=== PATIENT | female | born 1995 | race Caucasian/White ===

== ENCOUNTER → 2024-03-01 13:20 | Outpatient (CLI) | payer OTHER, SELFPAY ==
[2024-03-01 13:44] LABS: Add Manual Diff / Slide Review NO; Basophils Absolute Auto 0 /uL (0-100); Basophils Percent Auto 0.9 % (0-2); Eosinophils Absolute Auto 100 /uL (0-450); Eosinophils Percent Auto 1.9 % (2-4); Hematocrit 36.7 % (36-46); Hemoglobin 12.5 g/dL (12.0-16.0); Lymphocytes Absolute Auto 2000 /uL (1100-4500); Lymphocytes Percent Auto 36.9 % (25-40); Mean Corpuscular Volume 88.1 fL (80-100); Monocytes Absolute Auto 500 /uL (0-900); Monocytes Percent Auto 8.5 % (3-14); Neutrophils Absolute Auto 2800 /uL (1500-7000); Neutrophils Percent Auto 51.8 % (50-75); Platelet Count 277 X10^3/uL (150-400); Red Blood Cell Count 4.17 X10^6/uL (4.0-5.2); Red Cell Distribution Width 12.9 % (11.6-14.8); White Blood Cell Count 5.3 X10^3/uL (4.5-11.0)
[2024-03-01 14:19] LABS: Alanine Aminotransferase 16 IU/L (<35); Albumin 4.5 g/dL (3.5-5.0); Albumin Globulin Ratio 1.6 (1.0-2.8); Alkaline Phosphatase 56 U/L (38-126); Aspartate Aminotransferase 20 IU/L (14-36); BUN Creatinine Ratio 20.8 (6-22); Bilirubin Total 0.6 mg/dL (0.2-1.3); Blood Urea Nitrogen 11 mg/dL (7-17); C-Reactive Protein Quant < 0.5 mg/dL (<1.0); Calcium 9.3 mg/dL (8.4-10.2); Carbon Dioxide 24 mmol/L (22-32); Chloride 109 mmol/L (98-107); Estimated Glomerular Filt Rate > 60 mL/min (>60); Globulin 2.8 g/dL (1.7-4.1); Glucose 91 mg/dL (70-100); HEMOLYSIS < 15 (0-50); Potassium 3.9 mmol/L (3.4-5.1); Sodium 139 mmol/L (137-145); Total Protein 7.3 g/dL (6.3-8.2)
[2024-03-01 14:21] LABS: Rheumatoid Factor < 8.6 IU/mL (<12.0)
[2024-03-01 14:59] LABS: Erythrocyte Sedimentation Rate 8 MM/HR (0-20)
[2024-03-03 09:45] LABS: Deamidated Gliadin Ab IgA 4 units (0-19); Deamidated Gliadin Ab IgG 2 units (0-19); Immunoglobulin A,Qn 267 mg/dL (87-352); t-Transglutaminase IgA <2 U/mL (0-3)
[2024-03-05 16:07] LABS: ANA Screen, IFA Negative (.)
== END ==
LOC: LAB 13:22
PROVIDERS: PCP Family Medicine; Referring Provider Family Medicine; Visit Provider Family Medicine
DX: Z00.00 Encounter for general adult medical examination without abnormal findings (principal); R21 Rash and other nonspecific skin eruption; M25.50 Pain in unspecified joint; R53.83 Other fatigue; L98.9 Disorder of the skin and subcutaneous tissue, unspecified; K12.1 Other forms of stomatitis; Z92.89 Personal history of other medical treatment
CPT/HCPCS: 36415; 80053; 82784; 83516; 84443; 85025; 85651; 86038; 86140; 86430

== ENCOUNTER 2024-05-12 16:44 | Emergency (ER) | payer BC, SELFPAY ==
[2024-05-12 16:52] VITALS: BP 136/90; PULSE 78; RESP 16; TEMP 37.3; O2SAT 99; BMI 22.6
--- NOTE | 2024-05-12 18:35 | ED_ITS ---
HPI - Allergic Reaction <Jj Goldsmith PA-C - Last Filed: 05/12/24 18:51> General Chief complaint: Allergic Reaction Stated complaint: blurry vision, LOC, light sensitivity Time Seen by Provider: 05/12/24 17:53 Source: patient Mode of arrival: Ambulatory History of Present Illness HPI narrative: This is a 28-year-old female presents emergency department due to an episode reportedly going sun when her eyes began to swell up with some tearing as well as an episode of nausea and vomiting. She denies any chest pain, shortness of breath, itchiness, abdominal pain fevers, or concerning signs or symptoms. States this has happened frequently for her over the last 6 months or so. 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 Related Data Home Medications Medication Instructions Recorded Confirmed dupilumab 300 mg/2 mL subcutaneous 300 mg SUBCUT QWEEK 02/08/24 03/17/24 pen injector (Dupixent) Previous Rx's Medication Instructions Recorded hydroxyzine HCl 25 mg tablet 25 - 50 mg (1 - 2 x 25 mg) PO 03/17/24 BEDTIME #30 tabs Allergies Allergy/AdvReac Type Severity Reaction Status Date / Time No Known Drug Allergies Allergy Unverified 03/17/24 08:56 Review of Systems <Jj Goldsmith PA-C - Last Filed: 05/12/24 18:51> Review of Systems Narrative: GENERAL: Denies chills, fatigue, malaise, fever, sweats. HEENT: Denies sinus pain, ear pain, sore throat, difficulty swallowing, dizziness. RESPIRATORY: Denies dyspnea, cough, wheezing, hemoptysis, sputum. CARDIOVASCULAR: Denies chest pain, palpitations, orthopnea, edema, GASTROINTESTINAL: Denies nausea, vomiting, abdominal pain, diarrhea, constipation, melena. : Denies dysuria, frequency, incontinence, hematuria, urinary retention. MUSCULOSKELETAL: denies weakness, joint pain, or bony pain SKIN: Denies rash, skin lesions, or other NEUROLOGIC: Denies weakness, headache, numbness, change in speech, confusion, seizures, incoordination. PSYCHIATRIC: No concerning psychosocial issues. 12 point review of systems is negative except for those stated above Patient History <Jj Goldsmith PA-C - Last Filed: 05/12/24 18:51> Social History Smoking Status: Never smoker Smoking Status: Never smoker Substance Use Type: does not use Exam <XAVI Connors Last Filed: 05/12/24 18:51> Narrative Exam Narrative: GENERAL: Well-developed patient, in mild distress. HEAD: Atraumatic. Normocephalic. EYES: Pupils equal round and reactive. Extraocular motions intact. No scleral icterus. No injection or drainage. ENT: Nose without bleeding, purulent drainage. Throat without erythema, tonsillar hypertrophy or exudate. Airway patent. NECK: Trachea midline. Non tender EXTREMITIES: No edema or joint tenderness. NEURO: AOx3. SKIN: No rash or erythema of visible areas Initial Vital Signs Initial Vital Signs: Vital Signs Temperature 99.1 F 05/12/24 16:52 Pulse Rate 78 05/12/24 16:52 Respiratory Rate 16 05/12/24 16:52 Blood Pressure 136/90 05/12/24 16:52 Pulse Oximetry 99 05/12/24 16:52 Oxygen Delivery Method Room Air 05/12/24 16:52 <DO Ian Hughes Last Filed: 05/13/24 18:49> Initial Vital Signs Initial Vital Signs: Vital Signs Temperature 99.1 F 05/12/24 16:52 Pulse Rate 78 05/12/24 16:52 Respiratory Rate 16 05/12/24 16:52 Blood Pressure 136/90 05/12/24 16:52 Pulse Oximetry 99 05/12/24 16:52 Oxygen Delivery Method Room Air 05/12/24 16:52 Course <XAVI Connors Last Filed: 05/12/24 18:51> Vital Signs Vital signs: Vital Signs - 8 hr 05/12/24 16:52 Temperature 99.1 F Pulse Rate 78 Respiratory Rate 16 Blood Pressure 136/90 Pulse Oximetry 99 Oxygen Delivery Method Room Air <DO Ian Hughes Last Filed: 05/13/24 18:49> Vital Signs Vital signs: Vital Signs - 8 hr 05/12/24 16:52 Temperature 99.1 F Pulse Rate 78 Respiratory Rate 16 Blood Pressure 136/90 Pulse Oximetry 99 Oxygen Delivery Method Room Air MDM - Allergic Reaction <XAVI Connors Last Filed: 05/12/24 18:51> MDM Narrative Medical decision making narrative: ED course: This is a 28-year-old female who vague complaints of an episode of nausea and vomiting as well as erythema around her eyes. On exam there was no erythema noted and no longer having any episodes of vomiting. Discussed with the patient she follow up with the primary care provider for further outpatient testing and no need for emergent testing today. No difficulty breathing or concerns for any kind of anaphylactic reaction. CC: Nausea vomiting Complicating co-morbidities: None Data collected from: Previous notes Medical records reviewed: Patient has not been to to this emergency department the past Differential considered, but not limited to: Autoimmune process Exam documented above, pertinent findings include: No abnormal findings Lab Test results independently reviewed as above. Pertinent findings: None obtained Imaging studies independently reviewed: None obtained Scores Used: None MIPS Elements: None Consultations: None Treatments: None Re-evaluations: None Discussion: Discussed plan with the patient was comfortable with the plan Diagnosis: Nausea and vomiting Disposition: see below, along with detailed discharge instructions that have been reviewed with patient as well as indications for ED re-evaluation and additional outpatient follow up Discharge Plan Departure Patient Disposition: Home Clinical Impression: Vomiting Activity Restrictions/Additional Instructions: Thank you for coming to the [facility] Emergency Department today. As we discussed I recommend he follow up with the primary care provider for further workup of what is causing your symptoms. I do not believe you ever have any life-threatening symptoms currently. Please return to the emergency department if you develop any significant difficulty breathing or any other concerning signs or symptoms. I hope you feel better soon. Please follow up with your primary care provider within a week if your symptoms continue. If you do not have a primary care provider please contact the [facility] Resource line at [phone]. They will ask some questions about your medical history and help you get set up with a provider in the community. Prescriptions: No Action Dupixent Pen 300 mg/2 mL pen injector 300 mg SUBCUT QWEEK hydroxyzine HCl 25 mg tablet 25 - 50 mg PO BEDTIME Qty: 30 0RF Referrals: Penny Barbosa DO [Primary Care Provider] - Stand Alone Forms: Patient Portal/API ED Sign-out <Madonna Morse DO - Last Filed: 05/13/24 18:49> Cosign ED Attending Ovidio Attestation: I was immediately available in the department for consultation.
[2024-05-12 18:56] VITALS: BP 132/68; PULSE 75; RESP 16; TEMP 36.7; O2SAT 99
== END 2024-05-12 18:57 | disposition home or self-care (01) ==
PROVIDERS: Emergency Provider Physician Assistant Medical; PCP Family Medicine
DX: R11.2 Nausea with vomiting, unspecified (principal)
CPT/HCPCS: 99281; 99282

== ENCOUNTER 2024-08-12 09:38 | Emergency (ER) | payer BC, SELFPAY ==
[2024-08-12] VITALS (8 sets, daily range): BP systolic 113–152; BP diastolic 71–89; PULSE 79–90; RESP 13–30; TEMP 36.7; O2SAT 97–99; BMI 22.3
[2024-08-12 10:15] LABS: Add Manual Diff / Slide Review NO; Basophils Absolute Auto 0 /uL (0-100); Eosinophils Absolute Auto 100 /uL (0-450); Eosinophils Percent Auto 1.5 % (2-4); Hematocrit 39.5 % (36-46); Hemoglobin 13.4 g/dL (12.0-16.0); Lymphocytes Absolute Auto 1700 /uL (1100-4500); Lymphocytes Percent Auto 34.5 % (25-40); Mean Corpuscular HGB Conc 33.9 % (30-36); Mean Corpuscular Hemoglobin 29.3 PG (26-34); Mean Corpuscular Volume 86.3 fL (80-100); Monocytes Absolute Auto 600 /uL (0-900); Monocytes Percent Auto 11.4 % (3-14); Neutrophils Absolute Auto 2600 /uL (1500-7000); Neutrophils Percent Auto 51.6 % (50-75); Platelet Count 312 X10^3/uL (150-400); Red Blood Cell Count 4.57 X10^6/uL (4.0-5.2); Red Cell Distribution Width 13.5 % (11.6-14.8)
[2024-08-12 10:26] LABS: Alanine Aminotransferase 24 IU/L (<35); Albumin 4.9 g/dL (3.5-5.0); Albumin Globulin Ratio 1.5 (1.0-2.8); Alkaline Phosphatase 46 U/L (38-126); Aspartate Aminotransferase 28 IU/L (14-36); Bilirubin Total 0.9 mg/dL (0.2-1.3); Blood Urea Nitrogen 10 mg/dL (7-17); Calcium 9.4 mg/dL (8.4-10.2); Carbon Dioxide 19 mmol/L (22-32); Chloride 109 mmol/L (98-107); Estimated Glomerular Filt Rate > 60 mL/min (>60); Globulin 3.3 g/dL (1.7-4.1); Glucose 85 mg/dL (70-100); Lipase 57 U/L (23-300); Potassium 4.7 mmol/L (3.4-5.1); Sodium 137 mmol/L (137-145); Total Protein 8.2 g/dL (6.3-8.2)
[2024-08-12 10:27] LABS: HEMOLYSIS 88 (0-50)
--- NOTE | 2024-08-12 11:52 | ED_ITS ---
HPI - Abdominal Pain General Chief Complaint: Abdominal Pain Stated Complaint: Pain in right lower side Time Seen by Provider: 08/12/24 11:52 Source: patient and family Mode of arrival: Ambulatory History of Present Illness HPI narrative: Patient is a 28-year-old healthy female presenting today with sudden onset of right buttock pain radiating to her rectal area. She also has some mild right lower quadrant pain. She reports that she had a normal day yesterday she went to the restroom this morning and then suddenly had excruciating pain in her right lower lumbar area with sharp shooting pain to her rectal area. She has no loss of bowel or urine. No numbness or tingling in her leg. It does seem to be positional but she also says it is wrapping around into her abdomen as well. She denies any sort of injury or lifting. She reports that she and her are trying to conceive however test is negative. No nausea or vomiting. Related Data Home Medications Medication Instructions Recorded Confirmed dupilumab 300 mg/2 mL subcutaneous 300 mg SUBCUT QWEEK 02/08/24 07/18/24 pen injector (Dupixent) Previous Rx's Medication Instructions Recorded hydroxyzine HCl 25 mg tablet 25 - 50 mg (1 - 2 x 25 mg) PO 03/17/24 BEDTIME #30 tabs gabapentin 300 mg capsule 300 mg PO BEDTIME #30 caps 08/12/24 lidocaine 5 % topical patch 1 patch topical DAILY PRN pain, 08/12/24 moderate #30 ea Allergies Allergy/AdvReac Type Severity Reaction Status Date / Time No Known Drug Allergies Allergy Verified 08/12/24 09:53 Patient History Medical History (Updated 08/12/24 @ 12:14 by Raegan De Oliveira DO) History of hypothyroidism Social History Smoking Status: Never smoker Smoking Status: Never smoker Substance Use Type: does not use Exam Initial Vital Signs Initial Vital Signs: Vital Signs Temperature 98.1 F 08/12/24 09:50 Pulse Rate 90 08/12/24 09:50 Respiratory Rate 30 H 08/12/24 09:50 Blood Pressure 128/89 08/12/24 09:50 Pulse Oximetry 98 08/12/24 09:50 Oxygen Delivery Method Room Air 08/12/24 09:50 GENERAL: Well-appearing 28-year-old female appears in pain HEENT: Head atraumatic,EOMI, pupils reactive, face symmetric, [moist] mucous membranes CARDIOVASCULAR: Regular rate and rhythm without murmurs, rubs or gallops. RESPIRATORY: Breath sounds equal bilaterally, no wheezes rales or rhonchi. ABDOMEN: Soft, mild right lower quadrant pain BACK: Right lower lumbar pain definitely reproducible with palpation and light touch. Pain in buttock region as well : No CVA tenderness EXTREMITIES: Normal range of motion, no clubbing or edema. Neurovascularly intact NEUROLOGICAL: Alert and oriented x4.Normal gait and speech. Cranial nerves II through XII grossly intact. SKIN: Warm, dry, no laceration, no petechiae, no rashes or lesions. Course Orders Ordered: ED Orders 08/12/24 10:10 Complete Blood Count AUTO DIFF Stat Comprehensive Metabolic Panel Stat Lipase Stat Discontinued Medications Ketorolac Tromethamine (Ketorolac 30 Mg/Ml Vial) 15 mg IV NOW ONE Stop: 08/12/24 12:01 Last Admin: 08/12/24 12:12 Dose: Not Given Documented By: ELYSIA Lidocaine (Lidocaine 5% Patch) 1 each TOP NOW ONE Stop: 08/12/24 12:01 Last Admin: 08/12/24 12:12 Dose: 1 each Documented By: ELYSIA Ondansetron HCl (Ondansetron 4 Mg/2 Ml Inj) 4 mg IV NOW PRN PRN Reason: Nausea And Vomiting Ondansetron HCl (Ondansetron 4 Mg Odt) 4 mg PO NOW PRN PRN Reason: Nausea And Vomiting Vital Signs Vital signs: Vital Signs - 8 hr 08/12/24 11:00 08/12/24 11:00 08/12/24 11:21 Pulse Rate 86 Respiratory Rate 23 Blood Pressure 113/71 152/85 H Pulse Oximetry 98 08/12/24 11:21 08/12/24 11:30 08/12/24 11:30 Pulse Rate 80 79 Respiratory Rate 22 22 Blood Pressure 123/82 Pulse Oximetry 99 98 08/12/24 12:00 08/12/24 12:00 Pulse Rate 83 Respiratory Rate Blood Pressure 130/87 Pulse Oximetry 98 MDM - Abdominal Pain Lab Data 08/12/24 10:10 08/12/24 10:10 Labs: Lab Results 08/12/24 Range/Units 10:10 WBC 5.0 (4.5-11.0) X10^3/uL RBC 4.57 (4.0-5.2) X10^6/uL Hgb 13.4 (12.0-16.0) g/dL Hct 39.5 (36-46) % MCV 86.3 (80-100) fL MCH 29.3 (26-34) PG MCHC 33.9 (30-36) % RDW 13.5 (11.6-14.8) % Plt Count 312 (150-400) X10^3/uL Neut % (Auto) 51.6 (50-75) % Lymph % (Auto) 34.5 (25-40) % [place]es % (Auto) 11.4 (3-14) % Eos % (Auto) 1.5 L (2-4) % Baso % (Auto) 1.0 (0-2) % Neut # (Auto) 2600 (6843-6748) /uL Lymph # (Auto) 1700 (2920-4271) /uL Coles # (Auto) 600 (0-900) /uL Eos # (Auto) 100 (0-450) /uL Baso # (Auto) 0 (0-100) /uL Sodium 137 (137-145) mmol/L Potassium 4.7 (3.4-5.1) mmol/L Chloride 109 H (98-107) mmol/L Carbon Dioxide 19 L (22-32) mmol/L BUN 10 (7-17) mg/dL Creatinine 0.50 L (0.52-1.04) mg/dL Estimated GFR > 60 (>60) mL/min BUN/Creatinine Ratio 20.0 (6-22) Glucose 85 (70-100) mg/dL Calcium 9.4 (8.4-10.2) mg/dL Total Bilirubin 0.9 (0.2-1.3) mg/dL AST 28 (14-36) IU/L ALT 24 (<35) IU/L Alkaline Phosphatase 46 (38-126) U/L Total Protein 8.2 (6.3-8.2) g/dL Albumin 4.9 (3.5-5.0) g/dL Globulin 3.3 (1.7-4.1) g/dL Albumin/Globulin Ratio 1.5 (1.0-2.8) Lipase 57 (23-300) U/L Point of care testing: Point of Care Testing Test Results Negative Urine Dip Bedside Urine Glucose Negative Bedside Urine Bilirubin - Negative Bedside Urine Ketone - Negative Urine Specific [place] 1.010 Bedside Urine Occult Blood - Negative Bedside Urine pH 7.5 Bedside Urine Protein - Negative Bedside Urine Urobilinogen - Negative Bedside Urine Nitrite - Negative Bedside Urine Leukocytes - Negative Esterase MDM Narrative Medical decision making narrative: QUIN CC: Right buttock pain Complicating co-morbidities: Healthy female Medical records reviewed: Prior [employer] visit Differential considered: Sciatica retrocecal appendicitis ovarian cyst Exam documented above, pertinent findings include: Pain is reproducible in right lumbar area very sensitive to touch in the skin. It is lumbar buttock region. She says some minor tenderness right lower quadrant but overall abdomen is soft Lab Test results independently reviewed as above. Pertinent findings: CBC shows no leukocytosis WBC is 5.0 hemoglobin 13.4 hematocrit 39.5 CMP normal electrolytes bicarb is 19 creatinine 0.5, bilirubin liver enzymes Consultations: None Treatments: Lidocaine patch, Toradol was ordered IV however patient lost her IV she did not want Toradol IM Re-evaluations: Patient ambulated in ED without difficulty Discussion: Patient 28-year-old female presenting today with severe right-sided lumbar buttock pain was sharp shooting pain to the rectal region. She has no loss of stool or urine. It is definitely positional. She does some minimal right lower quadrant pain but definitely more tender in the back. More concerning for musculoskeletal is she will rather than abdominal issue. I did discuss with patient and mother possible need for CT unable to truly diagnose appendicitis retrocecal appendicitis is still possible although she is definitely able to find position of comfort. At this time she has no leukocytosis minimal abdominal pain. She would like to try lidocaine patch conservative measures and avoid a CT at this time. This seems reasonable. Discussion with her that if pain worsens then she must return to ED which she understands. She does not want any strong pain medication offered Toradol as an IM shot as opposed to IV however she would just like to take Motrin p.o. at home, does not like shots Discharge Plan Departure Patient Disposition: Home Clinical Impression: Back pain Instructions: DI for Back Pain With Sciatica Activity Restrictions/Additional Instructions: *You have been diagnosed with back pain with sciatica *What to do: At this time I do think you have some nerve impingement causing your pain. I recommend light activity heat stretches and some movement. No strenuous activity or heavy lifting. *Continue to take medications as directed Lidocaine patch at area of pain for 12 hours then remove (you may move to a completely different spot if needed) Gabapentin 300 mg at night if needed for sleep and pain Motrin 600 mg every 6 hours if needed for [id number] pain Tylenol 1000 mg every 6 hours if needed for [id number] pain *Follow up with your primary care provider in 2-3 days or call [phone] *Return to ER if you should have increasing pain abdominal pain nausea vomiting weakness in legs loss of urine loss of stool or any new, worsening or concerning symptoms Prescriptions: New lidocaine 5 % adhesive patch,medicated 1 patch topical DAILY PRN (Reason: pain, moderate) Qty: 30 0RF Rx Instructions: leave on most painful area for up to 12 hrs then remove gabapentin 300 mg capsule 300 mg PO BEDTIME Qty: 30 0RF No Action Dupixent Pen 300 mg/2 mL pen injector 300 mg SUBCUT QWEEK hydroxyzine HCl 25 mg tablet 25 - 50 mg PO BEDTIME Qty: 30 0RF Referrals: Penny Barbosa DO [Primary Care Provider] - Stand Alone Forms: Patient Portal/API
[2024-08-12] MEDS: LIDOCAINE 5% PATCH 1 EACH TOP (12:12)
== END 2024-08-12 12:21 | disposition home or self-care (01) ==
PROVIDERS: Emergency Provider Emergency Medicine; PCP Family Medicine
DX: M54.50 Low back pain, unspecified (principal); K62.89 Other specified diseases of anus and rectum; R10.31 Right lower quadrant pain
CPT/HCPCS: 36415; 80053; 81003; 81025; 83690; 85025; 99283

== ENCOUNTER → 2024-08-21 12:26 | Outpatient (CLI) | payer BC, SELFPAY ==
[2024-08-21 15:17] LABS: HCG Quantitative /Beta subunit 5.67 mIU/mL
== END ==
PROVIDERS: PCP Family Medicine; Referring Provider Obstetrics & Gynecology; Visit Provider Obstetrics & Gynecology
DX: O26.859 Spotting complicating pregnancy, unspecified trimester (principal)
CPT/HCPCS: 36415; 84702

== ENCOUNTER → 2024-08-23 12:50 | Outpatient (CLI) | payer BC, SELFPAY ==
[2024-08-23 13:58] LABS: HCG Quantitative /Beta subunit < 2.39 mIU/mL
== END ==
LOC: LAB 12:52
PROVIDERS: PCP Family Medicine; Referring Provider Obstetrics & Gynecology; Visit Provider Obstetrics & Gynecology
DX: O26.859 Spotting complicating pregnancy, unspecified trimester (principal)
CPT/HCPCS: 36415; 84702

== ENCOUNTER → 2024-10-04 15:22 | Outpatient (CLI) | payer BC, SELFPAY ==
[2024-10-04 20:52] LABS: HCG Quantitative /Beta subunit < 2.39 mIU/mL
== END ==
PROVIDERS: PCP Family Medicine; Referring Provider Obstetrics & Gynecology; Visit Provider Obstetrics & Gynecology
DX: N91.2 Amenorrhea, unspecified (principal)
CPT/HCPCS: 36415; 84702

== ENCOUNTER → 2025-01-22 12:13 | Outpatient (CLI) | payer BC, SELFPAY ==
[2025-01-22 13:18] LABS: HCG Quantitative /Beta subunit < 2.39 mIU/mL
== END ==
PROVIDERS: PCP Family Medicine; Referring Provider Obstetrics & Gynecology; Visit Provider Obstetrics & Gynecology
DX: N92.6 Irregular menstruation, unspecified (principal)
CPT/HCPCS: 36415; 84702

== ENCOUNTER → 2025-01-25 12:53 | Outpatient (CLI) | payer BC, SELFPAY ==
[2025-01-25 14:05] LABS: TSH w/ Reflex to FT4 1.42 uIU/mL (0.47-4.68)
[2025-01-25 14:43] LABS: Follicle Stimulating Hormone 4.43 mIU/mL; Luteinizing Hormone 15.1 mIU/mL
== END ==
LOC: LAB 12:54
PROVIDERS: PCP Family Medicine; Referring Provider Obstetrics & Gynecology; Visit Provider Obstetrics & Gynecology
DX: N91.1 Secondary amenorrhea (principal)
CPT/HCPCS: 36415; 83001; 83002; 84146; 84443

== ENCOUNTER 2025-03-07 16:14 | Emergency (ER) | payer BC, SELFPAY ==
[2025-03-07] VITALS (8 sets, daily range): BP systolic 123–153; BP diastolic 83–93; PULSE 70–83; RESP 14; TEMP 36.8; O2SAT 97–99; BMI 21.7
--- NOTE | 2025-03-07 16:30 | EKG_ITS ---
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
[2025-03-07 16:49] LABS: Bacteria Urine Many (>30); RBC Urine 0-1/HPF (0-5/HPF); Squamous Epithelial Cell Urine 1-5 /HPF (0-5/HPF); Urine Volume 10mL (spun); WBC Urine 10-30/HPF (0-5/HPF)
[2025-03-07 16:50] LABS: Ictotest Urine Negative (Negative)
[2025-03-07 16:54] LABS: Add Manual Diff / Slide Review NO; Basophils Absolute Auto 0 /uL (0-100); Basophils Percent Auto 0.7 % (0-2); Eosinophils Absolute Auto 100 /uL (0-450); Eosinophils Percent Auto 0.9 % (2-4); Hematocrit 34.9 % (36-46); Hemoglobin 12.4 g/dL (12.0-16.0); Lymphocytes Absolute Auto 1700 /uL (1100-4500); Lymphocytes Percent Auto 26.9 % (25-40); Mean Corpuscular HGB Conc 35.4 % (30-36); Mean Corpuscular Hemoglobin 30.6 PG (26-34); Mean Corpuscular Volume 86.4 fL (80-100); Monocytes Absolute Auto 600 /uL (0-900); Monocytes Percent Auto 9.3 % (3-14); Neutrophils Absolute Auto 3900 /uL (1500-7000); Neutrophils Percent Auto 62.2 % (50-75); Platelet Count 306 X10^3/uL (150-400); Red Blood Cell Count 4.04 X10^6/uL (4.0-5.2); Red Cell Distribution Width 13.6 % (11.6-14.8); White Blood Cell Count 6.2 X10^3/uL (4.5-11.0)
[2025-03-07 17:02] LABS: Alanine Aminotransferase 19 IU/L (<35); Albumin 4.3 g/dL (3.5-5.0); Albumin Globulin Ratio 1.6 (1.0-2.8); Alkaline Phosphatase 50 U/L (38-126); Aspartate Aminotransferase 23 IU/L (14-36); BUN Creatinine Ratio 19.6 (6-22); Bilirubin Total 0.6 mg/dL (0.2-1.3); Blood Urea Nitrogen 10 mg/dL (7-17); Calcium 8.7 mg/dL (8.4-10.2); Carbon Dioxide 22 mmol/L (22-32); Chloride 106 mmol/L (98-107); Estimated Glomerular Filt Rate > 60 mL/min (>60); Globulin 2.7 g/dL (1.7-4.1); Glucose 109 mg/dL (70-99); HEMOLYSIS < 15 (0-50); Lipase 67 U/L (23-300); Potassium 3.8 mmol/L (3.4-5.1); Sodium 136 mmol/L (137-145)
--- NOTE | 2025-03-07 18:46 | ED_ITS ---
HPI - General Adult General Chief complaint: Syncope Stated complaint: pelvic px, fainting, vomiting Time Seen by Provider: 03/07/25 18:44 Source: patient Mode of arrival: Ambulatory History of Present Illness HPI narrative: 29-year-old female with history of ovarian cysts, has had lower abdominal cramping and pain since this morning, seemed more central and suprapubic in location, then more right-sided, no prior appendectomy or other abdominopelvic surgeries, she felt worse pain and nausea, and briefly passed out, recovered quickly, then had another episode where she is briefly felt like she was going to pass out. She took Tylenol and the pain seems somewhat better. No vaginal bleeding. No nausea or vomiting. Denies cough or shortness of breath. No chest pain. No loose stools, no black or red stools. Related Data Home Medications Medication Instructions Recorded Confirmed dupilumab 300 mg/2 mL subcutaneous 300 mg SUBCUT QWEEK 02/08/24 02/16/25 pen injector ([employer]) Previous Rx's Medication Instructions Recorded hydroxyzine HCl 25 mg tablet 25 - 50 mg (1 - 2 x 25 mg) PO 03/17/24 BEDTIME #30 tabs gabapentin 300 mg capsule 300 mg PO BEDTIME #30 caps 08/12/24 lidocaine 5 % topical patch 1 patch topical DAILY PRN pain, 08/12/24 moderate #30 ea escitalopram oxalate 5 mg tablet 5 mg PO DAILY #30 tabs 02/16/25 (Lexapro) cephalexin 500 mg capsule 500 mg PO QID 7 days #28 caps 03/07/25 Allergies Allergy/AdvReac Type Severity Reaction Status Date / Time No Known Drug Allergies Allergy Verified 03/07/25 16:24 Patient History Medical History (Updated 03/07/25 @ 22:38 by Vicente Mccullough MD) History of hypothyroidism Social History Smoking Status: Unknown if ever smoked Smoking Status: Unknown if ever smoked Exam Narrative Exam Narrative: GENERAL: Well-developed patient, in mild distress. HEAD: Atraumatic. Normocephalic. EYES: Pupils equal round and reactive. Extraocular motions intact. No scleral icterus. No injection or drainage. ENT: Nose without bleeding, purulent drainage. Throat without erythema, tonsillar hypertrophy or exudate. Airway patent. NECK: Trachea midline. Non tender CARDIOVASCULAR: Regular rate and rhythm without murmurs, gallops, or rubs. RESPIRATORY: Clear to auscultation. Breath sounds equal bilaterally. No wheezes, rales, or rhonchi. GASTROINTESTINAL: Right lower quadrant area tenderness, nondistended nonrigid, normal active bowel tones, no obvious ventral hernias. No skin changes. EXTREMITIES: No edema or joint tenderness. BACK: Nontender without deformity or crepitance. No flank tenderness. NEURO: AOx3. Motor functions grossly nonfocal SKIN: No rash or erythema of visible areas Initial Vital Signs Initial Vital Signs: Vital Signs Temperature 98.2 F 03/07/25 16:15 Pulse Rate 76 03/07/25 16:15 Respiratory Rate 14 03/07/25 16:15 Blood Pressure 129/92 H 03/07/25 16:15 Pulse Oximetry 99 03/07/25 16:15 Oxygen Delivery Method Room Air 03/07/25 16:15 Course Orders Ordered: ED Orders 03/07/25 20:02 CT abdomen pelvis w con Stat 03/07/25 21:00 US pelvic complete Stat Discontinued Medications Ceftriaxone Sodium 1,000 mg/ (Sodium Chloride) 100 mls @ 200 mls/hr IV NOW ONE Stop: 03/07/25 18:46 Last Infusion: 03/07/25 19:40 Dose: Infused Documented By: Admin: 03/07/25 18:55 Dose: 200 mls/hr Documented By: MUKUND Ketorolac Tromethamine (Ketorolac 30 Mg/Ml Vial) 15 mg IV NOW ONE Stop: 03/07/25 18:59 Last Admin: 03/07/25 19:01 Dose: 15 mg Documented By: MUKUND Ondansetron HCl (Ondansetron 4 Mg/2 Ml Inj) 4 mg IV NOW PRN PRN Reason: Nausea And Vomiting Ondansetron HCl (Ondansetron 4 Mg Odt) 4 mg PO NOW PRN PRN Reason: Nausea And Vomiting Vital Signs Vital signs: Vital Signs - 8 hr 03/07/25 19:42 03/07/25 19:42 03/07/25 20:00 Pulse Rate 77 Respiratory Rate Blood Pressure 124/83 126/85 Pulse Oximetry 98 03/07/25 20:00 03/07/25 22:24 03/07/25 22:25 Pulse Rate 74 81 Respiratory Rate Blood Pressure 153/90 H Pulse Oximetry 98 99 03/07/25 22:25 03/07/25 22:30 03/07/25 22:30 Pulse Rate 83 73 Respiratory Rate Blood Pressure 129/90 Pulse Oximetry 98 97 03/07/25 23:00 03/07/25 23:00 03/07/25 23:30 Pulse Rate 74 70 Respiratory Rate Blood Pressure 131/93 H Pulse Oximetry 98 97 03/07/25 23:30 03/08/25 00:00 03/08/25 00:00 Pulse Rate 75 Respiratory Rate 18 Blood Pressure 123/87 130/91 H Pulse Oximetry 98 Medical Decision Making Lab Data Lab results reviewed: Yes I reviewed the patient's lab results. Lab results narrative: White blood cell count 6200, hemoglobin 12.4, platelets adequate. Glucose 109. Renal function normal. Electrolytes unremarkable. Urine test negative. Liver function lipase normal. Urine suspicious for infection, urine culture pending. 03/07/25 16:35 03/07/25 16:35 Labs: Lab Results 03/07/25 03/07/25 Range/Units 16:30 16:35 WBC 6.2 (4.5-11.0) X10^3/uL RBC 4.04 (4.0-5.2) X10^6/uL Hgb 12.4 (12.0-16.0) g/dL Hct 34.9 L (36-46) % MCV 86.4 (80-100) fL MCH 30.6 (26-34) PG MCHC 35.4 (30-36) % RDW 13.6 (11.6-14.8) % Plt Count 306 (150-400) X10^3/uL Neut % (Auto) 62.2 (50-75) % Lymph % (Auto) 26.9 (25-40) % Lamb % (Auto) 9.3 (3-14) % Eos % (Auto) 0.9 L (2-4) % Baso % (Auto) 0.7 (0-2) % Neut # (Auto) 3900 (6298-4997) /uL Lymph # (Auto) 1700 (1238-1932) /uL Lamb # (Auto) 600 (0-900) /uL Eos # (Auto) 100 (0-450) /uL Baso # (Auto) 0 (0-100) /uL Sodium 136 L (137-145) mmol/L Potassium 3.8 (3.4-5.1) mmol/L Chloride 106 (98-107) mmol/L Carbon Dioxide 22 (22-32) mmol/L BUN 10 (7-17) mg/dL Creatinine 0.51 L (0.52-1.04) mg/dL Estimated GFR > 60 (>60) mL/min BUN/Creatinine Ratio 19.6 (6-22) Glucose 109 H (70-99) mg/dL Calcium 8.7 (8.4-10.2) mg/dL Total Bilirubin 0.6 (0.2-1.3) mg/dL AST 23 (14-36) IU/L ALT 19 (<35) IU/L Alkaline Phosphatase 50 (38-126) U/L Total Protein 7.0 (6.3-8.2) g/dL Albumin 4.3 (3.5-5.0) g/dL Globulin 2.7 (1.7-4.1) g/dL Albumin/Globulin Ratio 1.6 (1.0-2.8) Lipase 67 (23-300) U/L Ur Bilirubin Confirm Negative (Negative) Urine RBC 0-1/hpf (0-5/HPF) Urine WBC 10-30/hpf H (0-5/HPF) Ur Squamous Epith Cells 1-5 /hpf (0-5/HPF) Urine Bacteria Many (>30) H (None) Vol Urine Centrifuged 10ml (spun) Point of Care Testing Test Results Negative Urine Dip Bedside Urine Glucose Negative Bedside Urine Bilirubin + 1 Bedside Urine Ketone +/- 5 Urine Specific [place] 1.015 Bedside Urine Occult Blood - Negative Bedside Urine pH 6.5 Bedside Urine Protein +/- 15 Bedside Urine Urobilinogen +/- 1mg Bedside Urine Nitrite - Negative Bedside Urine Leukocytes +/- 15 Esterase Point of care testing: Point of Care Testing Test Results Negative Urine Dip Bedside Urine Glucose Negative Bedside Urine Bilirubin + 1 Bedside Urine Ketone +/- 5 Urine Specific [place] 1.015 Bedside Urine Occult Blood - Negative Bedside Urine pH 6.5 Bedside Urine Protein +/- 15 Bedside Urine Urobilinogen +/- 1mg Bedside Urine Nitrite - Negative Bedside Urine Leukocytes +/- [address] scan - abdomen/pelvis: Radiologist's Impression: [address] [address] [address] Scan Report Signed Patient: Safia Carvalho MR#: [id number] : 1995 Acct:[id number] Age/Sex: 29 / F Date of Service: 03/07/25 Loc: ED Accession Number: [id number] Procedure: CT abdomen pelvis w con Ordering Provider: Vicente Mccullough MD PROCEDURE: CT ABDOMEN PELVIS W CON INDICATIONS: rlq abd pain TECHNIQUE: After the administration of intravenous contrast, axial sections acquired from the lung bases to the pubic symphysis. Coronal and sagittal reformats were performed. For radiation dose reduction, the following was used: automated exposure control, adjustment of mA and/or kV according to patient size. COMPARISON: None. FINDINGS: Image quality: Diagnostic. Lower Chest: No significant findings. ABDOMEN: Liver: No solid mass. Gallbladder: No radiopaque gall stones. Diffuse gallbladder wall thickening is noted. Biliary ducts: No biliary dilation. Pancreas: No ductal dilation. Spleen: Size is within normal limits. Adrenal Glands: No adrenal nodules. Kidneys and Ureters: No hydronephrosis. No solid mass. No complex renal cystic lesion which requires follow up. Stomach and Bowel: There is no bowel obstruction. No abnormal bowel wall thickening. Appendix is visualized in right lower quadrant and is normal in size and appearance. No abscess collection. Peritoneum: No abnormal intraperitoneal fluid. No free air. Ventral Wall: No significant ventral hernia. Abdominal Nodes: No retroperitoneal or mesenteric adenopathy by size criteria. Vessels: Aorta and inferior vena cava are normal in size. PELVIS: Pelvic Organs: Uterus and right ovary are within normal limits. Well- circumscribed cystic structure in left adnexa is seen and measures up to 3.7 x 3 cm in size. Bladder: No bladder wall thickening, accounting for underdistention. Pelvic Nodes: No enlarged lymph nodes. Miscellaneous: No inguinal hernias are seen. Bones: No aggressive osseous abnormality. IMPRESSION: 1. Normal appendix. No bowel obstruction or abnormal bowel wall thickening. No free fluid or free air. No abscess collection. 2. Suggestion of left ovarian cyst measures 3 x 3.7 cm in size. 3. Questionable gallbladder wall thickening which may be due to gallbladder contraction. No calcified gallstones. Acalculus cholecystitis cannot be excluded. Clinical correlation is recommended. Dictated by: Cezar Bello M.D. on 03/07/2025 at 20:45 Approved by: Cezar Bello M.D. on 03/07/2025 at 20:49 ECG Data Attestation: I personally reviewed and interpreted this ECG as follows: Interpretation: Normal sinus rhythm with rate of 75, no obvious ST segment elevation or depression changes. AL 140, QRS 82, QTC 431. MDM Narrative Medical decision making narrative: 29-year-old female with history of ovarian cysts, has had syncopal episode x2 with lower abdominal pain, seems to have some tenderness right lower quadrant, no prior appendicitis. Screening labs sent were unremarkable and serum studies, urinalysis suspicious for infection. Urine test negative. Urine culture requested. IV ceftriaxone for UTI coverage. However given her tenderness on exam we discussed imaging, we will pursue advanced imaging. CT abdomen and pelvis ordered. If CT negative consider ultrasound to evaluate for torsion. CT abdomen and pelvis shows normal appendix. No obstruction or acute changes, left ovarian cyst 3 x 3.7 cm size noted. Possible gallbladder wall thickening versus under dilatation. See radiology report. We will obtain pelvic ultrasound for further evaluation of the left ovarian cyst. She is not to have tenderness in her right upper quadrant. IV antibiotics given for cystitis changes by abnormal urinalysis. Ultrasound pelvis shows left-sided ovarian cyst with septation, no free fluid, good flow to both ovaries. See radiology report. Likely had vasovagal reaction to her pain as cause of her syncopal episodes. Doubt neuro or cardiovascular other more serious cause. Follow up with PCP regarding ovarian cyst changes. She did have urinary tract infection, urine culture ordered by protocol, given IV ceftriaxone, prescription for cephalexin. Follow up in 2 days to review symptoms with PCP advised, also to check urine culture results. Return precautions discussed. Discharged home with family. Discharge Plan Departure Patient Disposition: Home Clinical Impression: Urinary tract infection, Syncope, vasovagal, Ovarian cyst, Abdominal pain Instructions: DI for Syncope in Adults (Fainting), DI for Urinary Tract Infection (UTI) Activity Restrictions/Additional Instructions: Right-sided abdominal pain of unclear etiology, with associated episodes of briefly passing out, in context of right lower abdominal pain. Possible vasovagal reaction to abdominal pelvic process as suspected cause of your passing out. Abdomen and pelvis imaging showed left-sided ovarian cyst. Ultrasound done to make sure there was good blood flow to both ovaries, no evidence of torsion to the ovaries. Left-sided ovarian cyst noted. On CT imaging there was no inflammation noted of your appendix, nor adjacent colon or small bowel or other structures. Unclear cause of your right lower abdominal discomfort at this time. You do have a left-sided cyst, opposite side of your recent discomfort. Urinalysis however was suspicious for infection, neither kidney looked inflamed on CT imaging, no obstructing stone or complicated urinary tract infection. IV ceftriaxone antibiotic given. Further course of antibiotic as outpatient for now. Antibiotic prescription sent to your pharmacy. Take antibiotics as directed. Drink plenty of fluids. Recheck symptoms with your regular doctor in the next couple of days. Return to this/nearest emergency department for any change worsening symptoms or any concerns prior. Prescriptions: New cephalexin 500 mg capsule 500 mg PO QID 7 Days Qty: 28 0RF No Action Dupixent Pen 300 mg/2 mL pen injector 300 mg SUBCUT QWEEK hydroxyzine HCl 25 mg tablet 25 - 50 mg PO BEDTIME Qty: 30 0RF escitalopram oxalate [Lexapro] 5 mg tablet 5 mg PO DAILY Qty: 30 0RF lidocaine 5 % adhesive patch,medicated 1 patch topical DAILY PRN (Reason: pain, moderate) Qty: 30 0RF Rx Instructions: leave on most painful area for up to 12 hrs then remove gabapentin 300 mg capsule 300 mg PO BEDTIME Qty: 30 0RF Referrals: Penny Barbosa DO [Primary Care Provider] - Stand Alone Forms: Patient Portal/API/Survey
[2025-03-07] MEDS: cefTRIAXone 1,000 MG in SODIUM CHLORIDE 0.9% 100 ML 200 MG IV (18:55)
[2025-03-07] MEDS: KETOROLAC 30 MG/ML VIAL 15 MG IV (19:01)
--- NOTE | 2025-03-07 20:02 | DI.CT.S_ITS ---
PROCEDURE: CT ABDOMEN PELVIS W CON INDICATIONS: rlq abd pain TECHNIQUE: After the administration of intravenous contrast, axial sections acquired from the lung bases to the pubic symphysis. Coronal and sagittal reformats were performed. For radiation dose reduction, the following was used: automated exposure control, adjustment of mA and/or kV according to patient size. COMPARISON: None. FINDINGS: Image quality: Diagnostic. Lower Chest: No significant findings. ABDOMEN: Liver: No solid mass. Gallbladder: No radiopaque gall stones. Diffuse gallbladder wall thickening is noted. Biliary ducts: No biliary dilation. Pancreas: No ductal dilation. Spleen: Size is within normal limits. Adrenal Glands: No adrenal nodules. Kidneys and Ureters: No hydronephrosis. No solid mass. No complex renal cystic lesion which requires follow up. Stomach and Bowel: There is no bowel obstruction. No abnormal bowel wall thickening. Appendix is visualized in right lower quadrant and is normal in size and appearance. No abscess collection. Peritoneum: No abnormal intraperitoneal fluid. No free air. Ventral Wall: No significant ventral hernia. Abdominal Nodes: No retroperitoneal or mesenteric adenopathy by size criteria. Vessels: Aorta and inferior vena cava are normal in size. PELVIS: Pelvic Organs: Uterus and right ovary are within normal limits. Well-circumscribed cystic structure in left adnexa is seen and measures up to 3.7 x 3 cm in size. Bladder: No bladder wall thickening, accounting for underdistention. Pelvic Nodes: No enlarged lymph nodes. Miscellaneous: No inguinal hernias are seen. Bones: No aggressive osseous abnormality. IMPRESSION: 1. Normal appendix. No bowel obstruction or abnormal bowel wall thickening. No free fluid or free air. No abscess collection. 2. Suggestion of left ovarian cyst measures 3 x 3.7 cm in size. 3. Questionable gallbladder wall thickening which may be due to gallbladder contraction. No calcified gallstones. Acalculus cholecystitis cannot be excluded. Clinical correlation is recommended. Dictated by: Cezar Bello M.D. on 03/07/2025 at 20:45 Approved by: Cezar Bello M.D. on 03/07/2025 at 20:49
--- NOTE | 2025-03-07 21:00 | DI.US.S_ITS ---
PROCEDURE: US PELVIC COMPLETE INDICATIONS: LEFT OVARIAN CYST ON CT TECHNIQUE: Real-time scanning was performed of the pelvic organs, with image documentation. Additional endovaginal scanning was necessary due to incomplete visualization of the adnexal and endometrial structures by transabdominal scanning. COMPARISON: None. FINDINGS: Uterus: Uterus is anteverted and normal in size at 9.4 x 5.5 x 4.8 cm. The myometrium is homogeneous. The endometrium measures 11 mm combined thickness. No fibroids seen. Ovaries: The right ovary measures 4.2 x 2.4 x 2.4 cm, with a calculated ovarian volume of 12 cc. The left ovary measures 5.6 x 4.4 x 3.3 cm, with a calculated ovarian volume of 43 cc. The ovaries have a normal sonographic appearance. Less than 12 follicles can be seen in each ovary. Left ovarian anechoic cyst measuring 4.5 x 3.4 x 2.3 cm. Thin internal septations. Other: No pathologic free abdominal or pelvic fluid. IMPRESSION: 1. Left ovarian anechoic cyst with thin septations measuring 4.5 cm. -Consider follow-up pelvic ultrasound in 6-12 weeks. 2. Endometrium measures 11 mm. We strive to produce accurate, complete, and clear reports of imaging services. To assist us in improving patient care, this report was composed using standard report templates and voice recognition software. Therefore, it may contain abnormal punctuation, insertions and/or omissions. Occasional wrong-word or sound-alike substitutions may occur. Though we review the report and make efforts to correct it, we do recommend that the report be read carefully in proper context to recognize any text inaccuracies. Dictated by: Pablo Pugh M.D. on 03/07/2025 at 23:29 Approved by: Pablo Pugh M.D. on 03/07/2025 at 23:32
[2025-03-08] VITALS: BP 130/91; PULSE 75; RESP 18; O2SAT 98
== END 2025-03-08 00:32 | disposition home or self-care (01) ==
PROVIDERS: Emergency Medicine; Emergency Provider Emergency Medicine; PCP Family Medicine
DX: N39.0 Urinary tract infection, site not specified (principal); N83.202 Unspecified ovarian cyst, left side; R10.30 Lower abdominal pain, unspecified; R11.0 Nausea; R55 Syncope and collapse
CPT/HCPCS: 36415; 74177; 76830; 76856; 80053; 81003; 81015; 81025; 83690; 85025; 87086; 93005; 93975; 96365; 96375; 99284; J0696; J1885; Q9967